=== PATIENT | male | born 2000 | race Two or more races ===

== ENCOUNTER 2023-09-30 04:35 | Emergency (ER) | payer MEDICAID ==
[~2023-09-30] VITALS: Ht 165.1 cm; Wt 88.6 kg
[2023-09-30 05:18] LABS: Basophils # (auto) 0.1 10 ^3/uL (0-0.2); Basophils % (auto) 0.6 % (0.0-2.0); Eosinophils # (auto) 0.1 10 ^3/uL (0-0.8); Eosinophils % (auto) 0.6 % (0.0-7.0); Hematocrit 46.9 % (41.0-53.0); Hemoglobin 16.3 g/dL (13.5-17.5); Lymphocytes # (auto) 5.1 10 ^3/uL (0.4-5.4); Lymphocytes % (auto) 36.9 % (10.0-50.0); Mean Corpuscular Hemoglobin 30.7 pg (28.0-32.0); Mean Corpuscular Hgb Conc. 34.8 g/dL (32.0-36.0); Mean Corpuscular Volume 88.2 fL (80.0-100.0); Monocytes # (auto) 1.2 10 ^3/uL (0-1.3); Monocytes % (auto) 8.9 % (0.0-12.0); Neutrophils # (auto) 7.3 10 ^3/uL (1.6-8.6); Nucleated Red Blood Cells % 0.1 %; Red Blood Cells 5.32 10^6/uL (4.5-5.90); Red Cell Distribution Width 14.6 % (11.8-14.3); White Blood Cell 13.9 10^3/uL (4.4-10.8)
[2023-09-30 05:27] LABS: Alanine Aminotransferase 45 U/L (7-40); Albumin 4.9 g/dL (3.2-4.8); Alkaline Phosphatase 121 U/L (46-116); Anion Gap 9 (5-15); Aspartate Aminotransferase 24 U/L (13-40); BUN/Creatinine Ratio 7.8 (10.0-20.0); Blood Urea Nitrogen 8 mg/dL (9-23); Calcium 10.1 mg/dL (8.7-10.4); Carbon Dioxide 26 mmol/L (20-30); Chloride 106 mmol/L (98-107); Glucose 96 mg/dL (74-106); Potassium 3.4 mmol/L (3.5-5.1); Sodium 141 mmol/L (136-145)
[2023-09-30 05:28] LABS: Bilirubin, Total 0.7 mg/dL (0.2-1.0); Total Protein 7.7 g/dL (5.7-8.2)
[2023-09-30] MEDS: LORazepam 0.5 MG TAB PO ONE (06:55)
[2023-09-30] MEDS: ASPirin 325 MG TAB PO ONE (06:55)
[2023-09-30] MEDS ORDERED: AMOX500T3 PO (06:57)
[2023-09-30 07:30] VITALS: BP 132/83; PULSE 63; RESP 18; TEMP 98.9; O2SAT 99
== END 2023-09-30 07:33 | disposition home or self-care (01) ==
LOC: ER 04:35
DX: F41.9 Anxiety disorder, unspecified (principal); R07.89 Other chest pain; J40 Bronchitis, not specified as acute or chronic; F15.90 Other stimulant use, unspecified, uncomplicated
CPT/HCPCS: 36415; 71045; 80053; 84484; 85025; 93005

== ENCOUNTER 2024-01-26 19:47 | Emergency (ER) | payer MEDICAID ==
[~2024-01-26] VITALS: Ht 167.6 cm; Wt 82.2 kg
[~2024-01-26 19:47] MED LIST: AMOX500T3 PO
[2024-01-26 20:13] VITALS: BP 153/92
[2024-01-26 20:54] LABS: Basophils # (auto) 0 10 ^3/uL (0-0.2); Basophils % (auto) 0.2 % (0.0-2.0); Eosinophils # (auto) 0 10 ^3/uL (0-0.8); Eosinophils % (auto) 0.2 % (0.0-7.0); Hematocrit 48.3 % (41.0-53.0); Hemoglobin 16.5 g/dL (13.5-17.5); Lymphocytes # (auto) 2.4 10 ^3/uL (0.4-5.4); Lymphocytes % (auto) 21.7 % (10.0-50.0); Mean Corpuscular Hemoglobin 30.9 pg (28.0-32.0); Mean Corpuscular Hgb Conc. 34.1 g/dL (32.0-36.0); Mean Corpuscular Volume 90.8 fL (80.0-100.0); Monocytes # (auto) 0.8 10 ^3/uL (0-1.3); Monocytes % (auto) 7.4 % (0.0-12.0); Neutrophils % (auto) 70.5 % (37.0-80.0); Platelet Count (auto) 254 10^3/uL (140-450); Red Blood Cells 5.32 10^6/uL (4.5-5.90); Red Cell Distribution Width 14.2 % (11.8-14.3); White Blood Cell 11.3 10^3/uL (4.4-10.8)
[2024-01-26 20:55] VITALS: PULSE 79; RESP 16; O2SAT 98
[2024-01-26 21:06] LABS: Alanine Aminotransferase 27 U/L (7-40); Albumin 4.6 g/dL (3.2-4.8); Anion Gap 9 (5-15); BUN/Creatinine Ratio 10.6 (10.0-20.0); Bilirubin, Total 0.5 mg/dL (0.2-1.0); Blood Urea Nitrogen 9 mg/dL (9-23); Calcium 9.9 mg/dL (8.7-10.4); Carbon Dioxide 28 mmol/L (20-31); Chloride 107 mmol/L (98-107); Potassium 3.8 mmol/L (3.5-5.1); Sodium 144 mmol/L (136-145); Total Protein 7.5 g/dL (5.7-8.2)
[2024-01-26 21:09] LABS: Alkaline Phosphatase 120 U/L (46-116); Aspartate Aminotransferase 10 U/L (13-40); Glucose 113 mg/dL (74-106)
[2024-01-26] MEDS: IOHEXOL 300 MG/ML 100ML BOTTLE IJ ONE (21:11)
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
[2024-01-26] MEDS ORDERED: TIZA4TAB9 PO (22:19)
[2024-01-26] MEDS ORDERED: IBUP-1456 PO (22:19)
== END 2024-01-26 22:28 | disposition home or self-care (01) ==
LOC: ER 19:47
DX: S93.402A Sprain of unspecified ligament of left ankle, initial encounter (principal); R10.11 Right upper quadrant pain; F12.10 Cannabis abuse, uncomplicated; V43.62XA Car passenger injured in collision with other type car in traffic accident, initial encounter; Y93.89 Activity, other specified; Y92.89 Other specified places as the place of occurrence of the external cause; Y99.8 Other external cause status
CPT/HCPCS: 36415; 73610; 74177; 80053; 85025; 99285; Q9967

== ENCOUNTER 2024-03-28 11:34 | Emergency (ER) | payer MEDICAID ==
[~2024-03-28] VITALS: Ht 167.6 cm; Wt 79.6 kg
[2024-03-28 12:44] VITALS: BP 118/77; PULSE 106; RESP 18; TEMP 97.5; O2SAT 96
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
[2024-03-28] MEDS: LORazepam 0.5 MG TAB PO ONE (13:21)
[2024-03-28] MEDS ORDERED: HYDR50TA69 PO (13:33)
== END 2024-03-28 13:36 | disposition home or self-care (01) ==
LOC: ER 11:34
DX: F41.1 Generalized anxiety disorder (principal); F12.10 Cannabis abuse, uncomplicated